=== PATIENT | female | born 1965 | race Hispanic/Latino ===

== ENCOUNTER 2017-04-23 08:25 | Emergency (ER) | payer SELFPAY ==
[2017-04-23] MEDS ORDERED: Iopamidol 370 76% 100 ML VIAL ONE (09:20)
--- NOTE | 2017-04-23 09:29 | RAD ---
CHEST TWO VIEWS: 04/23/2017 HISTORY: Cough. COMPARISON: None. FINDINGS: Normal cardiac silhouette. Pulmonary vessels and hilum are normal. Costophrenic angles are clear. No mass. No consolidation. No pneumothorax or osseous abnormalities. IMPRESSION: No acute cardiopulmonary process. POS: [facility]
[2017-04-23 09:40] LABS: #Basophils 0.1 thou/uL (0.0-0.2); #Eosinphils 0.2 thou/uL (0.0-0.7); #Lymphocytes 2.1 thou/uL (1.20-3.40); #Monocytes 0.5 thou/uL (0.11-0.59); #Neutrophils 3.4 thou/uL (1.40-6.50); %Basophils 0.9 % (0.0-1.0); %Eosinophils 2.7 % (0.0-10.0); %Lymphocytes 33.5 % (21.0-51.0); %Monocytes 8.1 % (0.0-10.0); %Neutrophils 54.9 % (42.0-75.0); Hemoglobin 8.2 g/dL (12.0-16.0); Mean Corpuscular Hemoglobin 14.5 pg (27.0-31.0); Mean Corpuscular Volume 55.7 fl (81.0-99.0); Mean Platelet Volume 8.1 fL (7.4-10.4); Platelet Count 269 thou/uL (130-400); RBC Distribution Width 15.9 % (11.5-14.5); Red Blood Cell (RBC) Count 5.74 mill/uL (4.20-5.40); White Blood Cell (WBC) Count 6.3 thou/uL (4.8-10.8)
[2017-04-23] MEDS ORDERED: Ketorolac Tromethamine 30 MG/ML VIAL ONE (09:41)
[2017-04-23] MEDS ORDERED: Ketorolac Tromethamine 10 MG TAB ONE (09:41)
[2017-04-23 09:42] LABS: ALT (SGPT) 23 U/L (8-55); AST (SGOT) 23 U/L (5-34); Alkaline Phosphatase 78 U/L (40-150); Anion Gap 14 mmol/L (10-20); BUN (Urea Nitrogen) 9 mg/dL (7.0-18.7); Bilirubin, Total 0.3 mg/dL (0.2-1.2); Calc. Creatinine Clearance 0 mL/min (70-130); Calcium 9.1 mg/dL (7.8-10.44); Carbon Dioxide 24 mmol/L (22-29); Chloride 104 mmol/L (98-107); Estimated GFR-MDRD Greater than 90; Globulin 3.6 g/dL (2.4-3.5); Glucose 96 mg/dL (70-105); Lipase 33 U/L (8-78); Potassium 3.8 mmol/L (3.5-5.1); Protein, Total 7.6 g/dL (6.0-8.3); Sodium 138 mmol/L (136-145)
[2017-04-23 09:48] LABS: Ovalocytes SLIGHT = 2-5 cells (100X) (0-1/hpf)
[2017-04-23 09:49] LABS: Anisocytosis SLIGHT = 6-15 cells (100X) (0-5/hpf); PLT Morphology Comment Appears Adequate
[2017-04-23 09:50] LABS: Hypochromia SLIGHT = 6-15 cells (100X) (0-5/hpf); Poikilocytosis SLIGHT = 6-15 cells (100X) (0-5/hpf)
[2017-04-23 09:51] LABS: Microcytosis MODERATE=15-30 cells (100X) (0-5/hpf)
[2017-04-23 10:52] LABS: Bilirubin Negative (Negative); Blood, Urine Trace (Negative); Clarity Clear (Clear); Glucose, Urine (Dipstick) Negative (Negative); Leukocyte Negative (Negative); Nitrite Negative (Negative); Protein, Urine (Dipstick) Negative (Neg-Trace); Urobilinogen 0.2 mg/dL (0.2-1.0); pH, Urine 6.5 (5.0-9.0)
[2017-04-23 10:53] LABS: Bacteria/HPF Rare-Few HPF (None Seen); RBC/HPF 0-3 HPF (0-3); Squamous Epithelial 0-3 HPF (0-3); WBC/HPF None Seen HPF (0-3)
[2017-04-23 10:54] LABS: Pregnancy Test - Urine (BHCG) Negative (Negative); Pregu Control Background? CLEAR/WHITE (CLR/WHITE); Pregu Control Bar Appear? YES (CONTROL BAR)
[2017-04-23] MEDS ORDERED: Morphine 10 MG/ML VIAL ONE (10:57)
--- NOTE | 2017-04-23 14:55 | CT ---
CT ABDOMEN WITH CONTRAST CT PELVIS WITH CONTRAST: DATE: 04/23/2017 HISTORY: A 51-year-old female with right-sided abdominal pain for four weeks. COMPARISON: None. TECHNIQUE: IV injection of iodinated contrast media: Isovue 100 mL. Oral contrast media: Not administered. FINDINGS: There is a large number of parenchymal cysts throughout the bilateral renal upper, mid, and lower po les. The largest is a 2 cm cyst at the left renal upper pole, posteriorly. Most of the other ones are 1 cm or a few millimeters. There is no hydronephrosis. No striations of the nephrograms. Ther e is a subtle, ill defined, faint,2.5 x 1.5 cm region of slightly low attenuation at the far anterio r aspect of the liver, abutting the superior edge of the falciform ligament, involving the left edge of hepatic segment 8. This is nonspecific. One possibility is a small region of focal fatty infil tration. The rest of the liver shows no focal lesion. The appendix is normal. There are fluid-filled, thin-walled bilateral adnexal structures that are tubular, right side longer and slightly larger than left. These are consistent with hydrosalpinx rather than ovarian cysts. However, there are two ovarian cysts adjacent to each other, located posteriorly and inferiorly, abu tting the left side of the uterus. The larger cyst measures 3 x 2.5 x 2.5 cm. The adjacent round, smaller cyst is 2 cm. There is no ascites or pneumoperitoneum. No signs of acute colonic diverticulitis or small bowel di latation. Scattered diverticula in the proximal sigmoid colon and distal descending colon. No pleu ral effusion. Normal urinary bladder. There is an approximately 1.5 cm calcific density within the lumen of one of the small bowel loops o n the right side of the abdomen, presumably a swallowed calcium or iron tablet. The gallbladder is absent. IMPRESSION: 1. Bilateral hydrosalpinx. 2. Two left-sided ovarian cysts. 3. A large number of bilateral small renal cysts. 4. Status post cholecystectomy. [facility]RACHITO T[facility]ar POS: [facility]
== END 2017-04-23 14:05 | disposition home or self-care (01) ==
LOC: MADERS 08:25
DX: J40 Bronchitis, not specified as acute or chronic (principal); I10 Essential (primary) hypertension; N70.11 Chronic salpingitis; N28.1 Cyst of kidney, acquired; N83.209 Unspecified ovarian cyst, unspecified side; F17.210 Nicotine dependence, cigarettes, uncomplicated
CPT/HCPCS: 71020; 74177; 80053; 81003; 81015; 81025; 83690; 85025; 85060; 85379; 93005; 96374; 96375; J1885; J2270

== ENCOUNTER 2018-01-14 19:48 | Emergency (ER) | payer SELFPAY ==
[2018-01-14] MEDS ORDERED: Nitroglycerin 0.4 MG TAB (25 Tab Bottle) ONE (19:56)
[2018-01-14] MEDS ORDERED: Morphine 4 MG/ML VIAL ONE (20:19)
--- NOTE | 2018-01-14 20:31 | RAD ---
SINGLE VIEW OF THE CHEST: 01/14/18 COMPARISON: 04/23/17. HISTORY: Chest pain. FINDINGS: Single view of the chest shows a normal sized cardiomediastinal silhouette. There is no evidence of c onsolidation, mass, or pleural effusion. The bones are unremarkable. IMPRESSION: No evidence of acute cardiopulmonary disease. POS: [facility]
[2018-01-14 20:33] LABS: ALT (SGPT) 22 U/L (8-55); AST (SGOT) 17 U/L (5-34); Albumin 4.2 g/dL (3.5-5.0); Alkaline Phosphatase 73 U/L (40-150); Anion Gap 19 mmol/L (10-20); BUN (Urea Nitrogen) 13 mg/dL (7.0-18.7); Bilirubin, Total 0.2 mg/dL (0.2-1.2); Calc. Creatinine Clearance 0 mL/min (70-130); Calcium 9.4 mg/dL (7.8-10.44); Carbon Dioxide 18 mmol/L (22-29); Chloride 107 mmol/L (98-107); Estimated GFR-MDRD 87; Globulin 3.5 g/dL (2.4-3.5); Glucose 135 mg/dL (70-105); Magnesium 2.6 mg/dL (1.6-2.6); Potassium 3.5 mmol/L (3.5-5.1); Protein, Total 7.7 g/dL (6.0-8.3); Sodium 140 mmol/L (136-145)
[2018-01-14 20:35] LABS: CKMB 0.8 ng/mL (0-6.6); Troponin I 0.026 ng/mL (< 0.028)
== END 2018-01-14 21:30 | disposition short-term general hospital (02) ==
LOC: MADERS 19:48
DX: R07.9 Chest pain, unspecified (principal); E78.5 Hyperlipidemia, unspecified; F17.210 Nicotine dependence, cigarettes, uncomplicated
CPT/HCPCS: 71045; 80053; 82553; 83735; 83880; 84484; 85379; 93005; 96374; J2270